=== PATIENT | female | born 1980 | race American Indian/Alaskan Native ===

== ENCOUNTER 2019-01-18 11:04 | Emergency (ER) | payer OTHER ==
--- NOTE | 2019-01-18 11:30 | Emergency Department Report ---
Chief Complaint: Anxiety Stated Complaint: HEART RACING/ARM/SHOULDER/NECK PAIN Time Seen by Provider: 01/18/19 11:27 - HPI History of Present Illness: Pt presents with palpitations states she is having "increased burping" states she has a hx of anxiety and is not taking anything no V/D no CP, no LE edema, no SOB no daily meds does not have a primary care elevated HR at 116 EKG shows sinus tach MSE screening note: Focused history and physical exam performed. Due to findings the following was ordered: labs, EKG, UA, urine preg ED Disposition for MSE Condition: Stable
[2019-01-18 11:57] LABS: Basophils % (Auto) 0.6 % (0.0-1.8); Eosinophils # (Auto) 0.2 K/mm3 (0.0-0.4); Eosinophils % (Auto) 3.8 % (0.0-4.3); Hematocrit 38.9 % (30.3-42.9); Hemoglobin 13.4 gm/dl (10.1-14.3); Lymphocytes # (Auto) 2.5 K/mm3 (1.2-5.4); Lymphocytes % (Auto) 42.4 % (13.4-35.0); Mean Corpuscular HGB Conc 35 % (30-34); Mean Corpuscular Volume 94 fl (79-97); Monocytes # (Auto) 0.5 K/mm3 (0.0-0.8); Monocytes % (Auto) 8.7 % (0.0-7.3); Platelet Count 276 K/mm3 (140-440); Red Blood Count 4.16 M/mm3 (3.65-5.03); Red Cell Distribution Width 13.6 % (13.2-15.2)
[2019-01-18 12:04] LABS: Bilirubin,Urine NEG (Negative); Blood,Urine LG (Negative); Color,Urine Straw (Yellow); Protein,Urine <15 mg/dL mg/dL (Negative); Urobilinogen,Urine < 2.0 mg/dL (<2.0)
[2019-01-18 12:10] LABS: HCG Qualitative,Urine Negative (Negative)
[2019-01-18 12:16] LABS: Alanine Aminotransferase 16 units/L (7-56); Albumin 4.3 g/dL (3.9-5); BUN/Creatinine Ratio 10; Blood Urea Nitrogen 7 mg/dL (7-17); Calcium 8.3 mg/dL (8.4-10.2); Hemolysis Index 7
--- NOTE | 2019-01-18 12:50 | Emergency Department Report ---
ED Anxiety HPI - General Chief Complaint: Anxiety Stated Complaint: HEART RACING/ARM/SHOULDER/NECK PAIN Time Seen by Provider: 01/18/19 11:27 Source: patient Mode of arrival: Ambulatory - History of Present Illness Initial Comments: This is a 38-year-old female with a history of anxiety disorder who presents complaining of heart beating fast and some arm pain the past 6 day. Patient states that she she is moved away from her PCP relationship [place] and she's moved here with her daughters. Patient states that she has not been seen therapist to ED. Patient denies any fevers chills/cough/chest pain/shortness of breath/dizziness. MD Complaint: anxiety, heart racing -: Gradual Place: home Previous History of Same: Yes Severity: mild Quality: intermittant Provoking factors: work/job stress Improves With: medication Worsens With: nothing - Related Data Home Medications: Previous Rx's Medication Instructions Recorded Last Taken Type LORazepam [Ativan] 0.5 mg PO QHS #10 tab 01/18/19 Unknown Rx Allergies/Adverse Reactions: Allergies Allergy/AdvReac Type Severity Reaction Status Date / Time No Known Allergies Allergy Verified 01/18/19 11:09 ED Review of Systems ROS: Stated complaint: HEART RACING/ARM/SHOULDER/NECK PAIN Other details as noted in HPI Comment: All other systems reviewed and negative ED Past Medical Hx - Past Medical History Hx Psychiatric Treatment: Yes (anxiety) - Surgical History Past Surgical History?: No - Social History Smoking Status: Current Every Day Smoker Substance Use Type: None - Medications Home Medications: Home Medications Medication Instructions Recorded Confirmed Last Taken Type LORazepam [Ativan] 0.5 mg PO QHS #10 tab 01/18/19 Unknown Rx ED Physical Exam - General Limitations: No Limitations General appearance: alert, in no apparent distress - Head Head exam: Present: atraumatic, normocephalic - Eye Eye exam: Present: normal appearance - ENT ENT exam: Present: mucous membranes moist - Neck Neck exam: Present: normal inspection - Respiratory Respiratory exam: Present: normal lung sounds bilaterally. Absent: respiratory distress, wheezes, rales, chest wall tenderness - Cardiovascular Cardiovascular Exam: Present: regular rate, normal rhythm, tachycardia, normal heart sounds. Absent: bradycardia, systolic murmur, diastolic murmur, rubs, gallop - GI/Abdominal GI/Abdominal exam: Present: soft, normal bowel sounds - Extremities Exam Extremities exam: Present: normal inspection - Back Exam Back exam: Present: normal inspection, full ROM. Absent: tenderness - Neurological Exam Neurological exam: Present: alert, oriented X3, CN II-XII intact, normal gait - Psychiatric Psychiatric exam: Present: normal affect, normal mood - Skin Skin exam: Present: warm, dry, intact, normal color. Absent: rash ED Course Vital Signs 01/18/19 11:27 Temperature 97.9 F Pulse Rate 116 H Respiratory 16 Rate Blood Pressure 145/95 O2 Sat by Pulse 99 Oximetry ED Medical Decision Making - Lab Data Result diagrams: 01/18/19 11:37 01/18/19 11:37 Laboratory Last Values WBC 5.9 K/mm3 (4.5-11.0) 01/18/19 11:37 RBC 4.16 M/mm3 (3.65-5.03) 01/18/19 11:37 Hgb 13.4 gm/dl (10.1-14.3) 01/18/19 11:37 Hct 38.9 % (30.3-42.9) 01/18/19 11:37 MCV 94 fl (79-97) 01/18/19 11:37 MCH 32 pg (28-32) 01/18/19 11:37 MCHC 35 % (30-34) H 01/18/19 11:37 RDW 13.6 % (13.2-15.2) 01/18/19 11:37 Plt Count 276 K/mm3 (140-440) 01/18/19 11:37 Lymph % (Auto) 42.4 % (13.4-35.0) H 01/18/19 11:37 [place] % (Auto) 8.7 % (0.0-7.3) H 01/18/19 11:37 Eos % (Auto) 3.8 % (0.0-4.3) 01/18/19 11:37 Baso % (Auto) 0.6 % (0.0-1.8) 01/18/19 11:37 Lymph # 2.5 K/mm3 (1.2-5.4) 01/18/19 11:37 [place] # 0.5 K/mm3 (0.0-0.8) 01/18/19 11:37 Eos # 0.2 K/mm3 (0.0-0.4) 01/18/19 11:37 Baso # 0.0 K/mm3 (0.0-0.1) 01/18/19 11:37 Seg Neutrophils % 44.5 % (40.0-70.0) 01/18/19 11:37 Seg Neutrophils # 2.6 K/mm3 (1.8-7.7) 01/18/19 11:37 Sodium 138 mmol/L (137-145) 01/18/19 11:37 Potassium 3.6 mmol/L (3.6-5.0) 01/18/19 11:37 Chloride 103.6 mmol/L (98-107) 01/18/19 11:37 Carbon Dioxide 25 mmol/L (22-30) 01/18/19 11:37 Anion Gap 13 mmol/L 01/18/19 11:37 BUN 7 mg/dL (7-17) 01/18/19 11:37 Creatinine 0.7 mg/dL (0.7-1.2) 01/18/19 11:37 Estimated GFR > 60 ml/min 01/18/19 11:37 BUN/Creatinine Ratio 10 % 01/18/19 11:37 Glucose 86 mg/dL (65-100) 01/18/19 11:37 Calcium 8.3 mg/dL (8.4-10.2) L 01/18/19 11:37 Phosphorus 2.60 mg/dL (2.5-4.5) 01/18/19 11:37 Magnesium 1.90 mg/dL (1.7-2.3) 01/18/19 11:37 Total Bilirubin 0.40 mg/dL (0.1-1.2) 01/18/19 11:37 AST 18 units/L (5-40) 01/18/19 11:37 ALT 16 units/L (7-56) 01/18/19 11:37 Alkaline Phosphatase 77 units/L (35-129) 01/18/19 11:37 Total Protein 7.2 g/dL (6.3-8.2) 01/18/19 11:37 Albumin 4.3 g/dL (3.9-5) 01/18/19 11:37 Albumin/Globulin Ratio 1.5 % 01/18/19 11:37 Urine Color Straw (Yellow) 01/18/19 11:40 Urine Turbidity Clear (Clear) 01/18/19 11:40 Urine pH 7.0 (5.0-7.0) 01/18/19 11:40 Ur Specific [place] 1.004 (1.003-1.030) 01/18/19 11:40 Urine Protein <15 mg/dl mg/dL (Negative) 01/18/19 11:40 Urine Glucose (UA) Neg mg/dL (Negative) 01/18/19 11:40 Urine Ketones Neg mg/dL (Negative) 01/18/19 11:40 Urine Blood Lg (Negative) 01/18/19 11:40 Urine Nitrite Neg (Negative) 01/18/19 11:40 Urine Bilirubin Neg (Negative) 01/18/19 11:40 Urine Urobilinogen < 2.0 mg/dL (<2.0) 01/18/19 11:40 Ur Leukocyte Esterase Neg (Negative) 01/18/19 11:40 Urine WBC (Auto) 2.0 /HPF (0.0-6.0) 01/18/19 11:40 Urine RBC (Auto) 3.0 /HPF (0.0-6.0) 01/18/19 11:40 U Epithel Cells (Auto) 2.0 /HPF (0-13.0) 01/18/19 11:40 Urine HCG, Qual Negative (Negative) 01/18/19 11:40 - EKG Data EKG shows normal: sinus rhythm Rate: tachycardia - EKG Data When compared to previous EKG there are: no significant change - Medical Decision Making 38-year-old female presents with anxiety panic attack. Patient and his respiratory distress or neurologic deficit. Discussed the patient will follow up with primary care physician. All labs are within normal limits discussed findings with the patient. Patient is speaking in clear sentences no distress. Critical care attestation.: If time is entered above; I have spent that time in minutes in the direct care of this critically ill patient, excluding procedure time. ED Disposition Clinical Impression: Anxiety disorder, Panic attack Disposition: DC-01 TO HOME OR SELFCARE Is pt being admited?: No Does the pt Need Aspirin: No Condition: Stable Instructions: Generalized Anxiety Disorder (ED), Anxiety (ED) Additional Instructions: Make sure to follow up with the primary care physician as discussed. Take all your medications as you've been prescribed. If you have any worsening symptoms or develop new symptoms please return to ED immediately. Prescriptions: LORazepam [Ativan] 0.5 mg PO QHS #10 tab Referrals: ZANE WASHINGTON MD [Primary Care Provider] - 3-5 Days [facility] [Outside] - 3-5 Days [facility] [Outside] - 3-5 Days [facility] [Outside] - 3-5 Days Forms: Work/School Release Form(ED) Time of Disposition: 12:50
[2019-01-19 18:52] VITALS: BP 141/90
== END 2019-01-18 13:49 | disposition home or self-care (01) ==
LOC: ED 11:04
DX: F41.9 Anxiety disorder, unspecified (principal); F41.0 Panic disorder [episodic paroxysmal anxiety]; F17.200 Nicotine dependence, unspecified, uncomplicated
CPT/HCPCS: 36415; 80053; 81001; 81025; 83735; 84100; 85025; 93005; 93010; 99283

== ENCOUNTER 2019-10-08 00:31 | Emergency (ER) | payer SELFPAY ==
[2019-10-08] MEDS ORDERED: ASPIRIN 325 MG TAB PO ONE (01:34)
[2019-10-08 01:58] LABS: Basophils # (Auto) 0.1 K/mm3 (0.0-0.1); Basophils % (Auto) 1.2 % (0.0-1.8); Eosinophils # (Auto) 0.2 K/mm3 (0.0-0.4); Eosinophils % (Auto) 2.5 % (0.0-4.3); Hematocrit 39.6 % (30.3-42.9); Hemoglobin 13.6 gm/dl (10.1-14.3); Lymphocytes # (Auto) 3.6 K/mm3 (1.2-5.4); Lymphocytes % (Auto) 41.7 % (13.4-35.0); Mean Corpuscular HGB Conc 34 % (30-34); Mean Corpuscular Volume 94 fl (79-97); Monocytes # (Auto) 0.6 K/mm3 (0.0-0.8); Monocytes % (Auto) 7.6 % (0.0-7.3); Platelet Count 257 K/mm3 (140-440); Red Blood Count 4.22 M/mm3 (3.65-5.03); Red Cell Distribution Width 13.7 % (13.2-15.2)
[2019-10-08 02:15] LABS: BUN/Creatinine Ratio 9; Blood Urea Nitrogen 6 mg/dL (7-17); Calcium 8.8 mg/dL (8.4-10.2); Hemolysis Index 14
[2019-10-08 04:05] VITALS: BP 111/70
--- NOTE | 2019-10-08 04:50 | Emergency Department Report ---
ED Chest Pain HPI - General Chief Complaint: Chest Pain Stated Complaint: FACE TINGLING, SOB, FAST HEARTBEAT Time Seen by Provider: 10/08/19 03:59 Source: patient Mode of arrival: Ambulatory Limitations: No Limitations - History of Present Illness Initial Comments: Patient is a 38-year-old female who is presenting with some chest discomfort. Patient states he is tightness in her chest as well as her left arm and has had some face tingling throughout the entire day yesterday. Patient states is relieved with belching. Patient denies nausea vomiting. Patient states she is never has sensation like this before. Patient is no abnor mal foods that she can think of. She denies fevers chills cough cold congestion and neck stiffness or sore throat. - Related Data Previous Rx's Medication Instructions Recorded Last Taken Type LORazepam [Ativan] 0.5 mg PO QHS #10 tab 01/18/19 Unknown Rx Dicyclomine [Bentyl] 20 mg PO QID #10 tablet 10/08/19 Unknown Rx Simethicone [Gas Relief] 125 mg PO BID #10 capsule 10/08/19 Unknown Rx Allergies Allergy/AdvReac Type Severity Reaction Status Date / Time No Known Allergies Allergy Verified 01/18/19 11:09 Heart Score - HEART Score History: Slightly suspicious EKG: Normal Age: < 45 Risk factors: No known risk factors Troponin: < normal limit HEART Score: 0 ED Review of Systems ROS: Stated complaint: FACE TINGLING, SOB, FAST HEARTBEAT Other details as noted in HPI Comment: All other systems reviewed and negative ED Past Medical Hx - Past Medical History Previous Medical History?: Yes Hx Psychiatric Treatment: Yes (anxiety) - Surgical History Past Surgical History?: No - Social History Smoking Status: Current Every Day Smoker Substance Use Type: None - Medications Home Medications: Home Medications Medication Instructions Recorded Confirmed Last Taken Type LORazepam [Ativan] 0.5 mg PO QHS #10 tab 01/18/19 Unknown Rx Dicyclomine [Bentyl] 20 mg PO QID #10 tablet 10/08/19 Unknown Rx Simethicone [Gas Relief] 125 mg PO BID #10 capsule 10/08/19 Unknown Rx ED Physical Exam - General Limitations: No Limitations General appearance: alert, in no apparent distress - Head Head exam: Present: atraumatic, normocephalic - Eye Eye exam: Present: normal appearance - ENT ENT exam: Present: mucous membranes moist - Neck Neck exam: Present: normal inspection - Respiratory Respiratory exam: Present: normal lung sounds bilaterally. Absent: respiratory distress, wheezes, rales - Cardiovascular Cardiovascular Exam: Present: regular rate, normal rhythm, normal heart sounds. Absent: systolic murmur, diastolic murmur, rubs, gallop - GI/Abdominal GI/Abdominal exam: Present: soft, hyperactive bowel sounds. Absent: distended, tenderness, guarding, rebound, normal bowel sounds - Extremities Exam Extremities exam: Present: normal inspection - Back Exam Back exam: Present: normal inspection - Neurological Exam Neurological exam: Present: alert, oriented X3 - Psychiatric Psychiatric exam: Present: normal affect, normal mood - Skin Skin exam: Present: warm, dry, intact, normal color. Absent: rash ED Course Vital Signs 10/08/19 10/08/19 10/08/19 00:42 03:56 03:57 Temperature 98.7 F Pulse Rate 113 H 68 63 Respiratory 18 12 18 Rate Blood Pressure 139/78 O2 Sat by Pulse 97 Oximetry 10/08/19 10/08/19 10/08/19 03:59 04:01 04:02 Temperature Pulse Rate 66 69 60 Respiratory 19 13 12 Rate Blood Pressure 111/70 O2 Sat by Pulse 98 98 Oximetry ED Medical Decision Making - Lab Data Result diagrams: 10/08/19 01:46 10/08/19 01:46 Lab Results 10/08/19 10/08/19 10/08/19 Range/Units 01:46 01:46 01:46 WBC 8.5 (4.5-11.0) K/mm3 RBC 4.22 (3.65-5.03) M/mm3 Hgb 13.6 (10.1-14.3) gm/dl Hct 39.6 (30.3-42.9) % MCV 94 (79-97) fl MCH 32 (28-32) pg MCHC 34 (30-34) % RDW 13.7 (13.2-15.2) % Plt Count 257 (140-440) K/mm3 Lymph % (Auto) 41.7 H (13.4-35.0) % [place] % (Auto) 7.6 H (0.0-7.3) % Eos % (Auto) 2.5 (0.0-4.3) % Baso % (Auto) 1.2 (0.0-1.8) % Lymph # 3.6 (1.2-5.4) K/mm3 [place] # 0.6 (0.0-0.8) K/mm3 Eos # 0.2 (0.0-0.4) K/mm3 Baso # 0.1 (0.0-0.1) K/mm3 Seg Neutrophils % 47.0 (40.0-70.0) % Seg Neutrophils # 4.0 (1.8-7.7) K/mm3 Sodium 140 (137-145) mmol/L Potassium 3.6 (3.6-5.0) mmol/L Chloride 102.9 (98-107) mmol/L Carbon Dioxide 25 (22-30) mmol/L Anion Gap 16 mmol/L BUN 6 L (7-17) mg/dL Creatinine 0.7 (0.7-1.2) mg/dL Estimated GFR > 60 ml/min BUN/Creatinine Ratio 9 % Glucose 111 H (65-100) mg/dL Calcium 8.8 (8.4-10.2) mg/dL Troponin T < 0.010 (0.00-0.029) ng/mL HCG, Qual Negative (Negative) - EKG Data -: EKG Interpreted by Dc EKG shows normal: sinus rhythm, axis, intervals, QRS complexes, ST-T waves Rate: normal - EKG Data Interpretation: normal EKG - Medical Decision Making Patient is a 38-year-old [place] female is presenting with chest discomfort which was relieved with belching. Patient with very atypical symptoms for acute coronary syndrome. Lungs are clear to auscultation. EKG is within normal limits. Labs appear normal. Patient stable for discharge. Critical care attestation.: If time is entered above; I have spent that time in minutes in the direct care of this critically ill patient, excluding procedure time. ED Disposition Clinical Impression: Atypical chest pain, Gas pain Disposition: DC- TO HOME OR SELFCARE Is pt being admited?: No Does the pt Need Aspirin: No Condition: Stable Referrals: PRIMARY CARE, [Primary Care Provider] - 3-5 Days Time of Disposition: 04:51
--- NOTE | 2019-10-08 06:27 | XRay Report ---
CHEST 1 VIEW INDICATION: Chest Pain COMPARISON: None FINDINGS: Support devices: None Heart: Normal Lungs/Pleura: No acute pulmonary or pleural findings. IMPRESSION: 1. No acute disease. Signer Name: Matt Quigley MD Signed: 10/08/2019 6:23 AM Workstation Name: [id number]
== END 2019-10-08 05:10 | disposition home or self-care (01) ==
LOC: ED 00:31
DX: R07.89 Other chest pain (principal); R14.1 Gas pain; F41.9 Anxiety disorder, unspecified; F17.200 Nicotine dependence, unspecified, uncomplicated; Z79.899 Other long term (current) drug therapy
CPT/HCPCS: 36415; 71045; 80048; 84484; 84703; 85025; 93005; 93010